=== PATIENT | male | born 1970 | race Caucasian/White ===

== ENCOUNTER → 2018-07-21 | Outpatient (CLI) | payer BC ==
[~2018-07-21] MED LIST: OXYACE5T PO; RXERYTOPTH OP
[2018-07-21 17:40] LABS: Adenovirus F 40/41 Not Detected (NOT DETECT); Astrovirus Not Detected (NOT DETECT); Campylobacter Sp Not Detected (NOT DETECT); Cryptosporidium Not Detected (NOT DETECT); Cyclospora Cayetanensis Not Detected (NOT DETECT); E. Coli O157 Not Detected (NOT DETECT); Entamoeba Histolytica Not Detected (NOT DETECT); Enteroaggregative E. coli-EAEC Not Detected (NOT DETECT); Enteropathogenic E. coli-EPEC Not Detected (NOT DETECT); Enterotoxigenic E. coli-ETEC Detected (NOT DETECT); Giardia Lamblia Not Detected (NOT DETECT); Norovirus GI/GII Not Detected (NOT DETECT); Plesiomonas Shigelloides Not Detected (NOT DETECT); Rotavirus A Not Detected (NOT DETECT); Salmonella Sp Not Detected (NOT DETECT); Sapovirus Not Detected (NOT DETECT); Shiga Toxin-prod E. coli-STEC Not Detected (NOT DETECT); Shigella/Enteroin E. coli-EIEC Not Detected (NOT DETECT); Vibrio Cholerae Not Detected (NOT DETECT); Vibrio Sp Not Detected (NOT DETECT); Yersinia Enterocolitica Not Detected (NOT DETECT)
== END | disposition home or self-care (01) ==
LOC: LAB SHORT 13:42 → LAB EV 13:42
PROVIDERS: General Practice
DX: R19.7 Diarrhea, unspecified (principal)
CPT/HCPCS: 87507

== ENCOUNTER 2019-05-15 13:28 | Day surgery (SDC) | payer BC ==
[~2019-05-15] VITALS: Ht 177.8 cm; Wt 80.3 kg
[~2019-05-15 13:28] MED LIST changes: +LOSA25
[2019-05-15] MEDS ORDERED: AMLODIPINE BESY10 MG (14:13)
--- NOTE | 2019-05-15 15:13 | NUR ---
05/15/19 1513 Gabriela Lopez SITE CHECK PERFORMED AND TIME OUT COMPLETED AT 1510. DR FRY INJECTED 10ML OF LIDOCAIN WITH EPI.
== END 2019-05-15 16:26 | disposition home or self-care (01) ==
LOC: ORSCSDS 13:28
PROVIDERS: Orthopaedic Surgery
PROC: 01N54ZZ Release Median Nerve, Percutaneous Endoscopic Approach (ICD-10-PCS; principal; 2019-05-15 15:30)
DX: G56.02 Carpal tunnel syndrome, left upper limb (principal); I10 Essential (primary) hypertension
CPT/HCPCS: J0690; J2250; J7120

== ENCOUNTER 2021-01-05 06:49 | Day surgery (SDC) | payer BC ==
[~2021-01-05] VITALS: Ht 180.3 cm; Wt 78.4 kg
[~2021-01-05 06:49] MED LIST changes: +AMLODIPINE BESY10 MG
--- NOTE | 2021-01-05 08:10 | NUR ---
01/05/21 0810 EMRE OBANDO INJECTION IN PRE OP WITH 2% LIDO W/EPI 1: 100,000. PULSE OX IN PLACE AND PT O2 97% FOR DURATION OF PROCEDURE. PT MEDICATED PRIOR WITH 2MG VERSED PER DR. TALLEY.
== END 2021-01-05 08:52 | disposition home or self-care (01) ==
LOC: ORSCSDS 06:49
PROVIDERS: Orthopaedic Surgery
PROC: 01N54ZZ Release Median Nerve, Percutaneous Endoscopic Approach (ICD-10-PCS; principal; 2021-01-05 08:00)
DX: G56.01 Carpal tunnel syndrome, right upper limb (principal); I10 Essential (primary) hypertension; Z79.899 Other long term (current) drug therapy
CPT/HCPCS: J1885; J2250

== ENCOUNTER 2025-02-20 09:16 | Emergency (ER) | payer BC ==
[~2025-02-20] VITALS: Ht 180.3 cm; Wt 93.0 kg
[2025-02-20] MEDS ORDERED: REMERON1510 PO (09:37)
[2025-02-20] MEDS ORDERED: Prochlorperazine Edisylate 10 mg Vial IV ONE (10:00)
[2025-02-20] MEDS ORDERED: DiphenhydrAMINE HCl 50 MG/ML 1ML Vial IV ONE (10:00)
[2025-02-20] MEDS ORDERED: NS 1,000 ML IV SCH (10:00)
[2025-02-20 10:45] LABS: BASOPHILS ABSOLUTE AUTO 0.05 K/mm3 (0.00-0.23); BASOPHILS PERCENT AUTO 1 % (0-2); EOSINOPHILS ABSOLUTE AUTO 0.14 K/mm3 (0.00-0.68); EOSINOPHILS PERCENT AUTO 2 % (0-6); Hematocrit 48.3 % (37.0-53.0); Hemoglobin 16.5 g/dL (13.5-17.5); IMMATURE GRAN ABSOLUTE AUTO 0.03 K/mm3 (0.00-0.10); IMMATURE GRAN PERCENT AUTO 0 % (0-1); LYMPHOCYTES ABSOLUTE AUTO 2.25 K/mm3 (0.84-5.20); LYMPHOCYTES PERCENT AUTO 27 % (21-46); MONOCYTES ABSOLUTE AUTO 0.86 K/mm3 (0.16-1.47); MONOCYTES PERCENT AUTO 10 % (4-13); Mean Corpuscular HGB Conc 34.2 g/dL (31.5-36.5); Mean Corpuscular Volume 91 fL (80-100); NEUTROPHILS ABSOLUTE AUTO 5.08 K/mm3 (1.96-9.15); NEUTROPHILS PERCENT AUTO 60 % (41-73); NRBC ABSOLUTE 0.00 K/mm3 (0.00-0.02); NRBC Auto 0.0 /100 WBC (0.0-0.2); Platelet Count 255 K/mm3 (150-400); RDW Coefficient Variation 11.5 % (11.7-14.2); RDW Standard Deviation 38.3 fL (35.1-46.3)
[2025-02-20 11:06] LABS: Alanine Aminotransfer (ALT/SGP 108 U/L (12-78); Albumin, Blood 4.4 g/dL (3.4-5.0); Albumin/Globulin Ratio 1.4 (0.8-1.8); Anion Gap 8 mmol/L (3-11); Aspartate Aminotrans (AST/SGOT 45 U/L (12-37); Bilirubin, Total 2.1 mg/dL (0.1-1.0); Blood Urea Nitrogen 19 mg/dL (8-24); CO2, Blood 29 mmol/L (21-32); Calcium, Blood 9.0 mg/dL (8.5-10.1); Chloride, Blood 106 mmol/L (98-108); Creatinine, Blood 0.84 mg/dL (0.60-1.20); Ethanol (Alcohol), Blood, Med <3 mg/dL; Globulin, Blood 3.1 g/dL (2.2-4.0); Glucose, Blood 101 mg/dL (70-99); Potassium, Blood 3.7 mmol/L (3.5-5.5); Sodium, Blood 139 mmol/L (136-145); Total Protein, Blood 7.5 g/dL (6.4-8.2)
[2025-02-20 12:56] VITALS: BP 144/95
== END 2025-02-20 12:58 | disposition home or self-care (01) ==
LOC: ER 09:16
PROVIDERS: Student in an Organized Health Care Education/Training Program
DX: R53.1 Weakness (principal); E80.6 Other disorders of bilirubin metabolism; R74.01 Elevation of levels of liver transaminase levels; Z79.899 Other long term (current) drug therapy
CPT/HCPCS: 70450; 70496; 70498; 80053; 80320; 82947; 83605; 83735; 84145; 85025; 93005; 93010; 96361; 96374-59; 96375-59; 99285-25; A9270; J0780; J1200; J7030; Q9967